=== PATIENT | male | born 1960 | race African-American/Black ===

== ENCOUNTER 2020-11-11 20:35 | Inpatient (IN) ==
[2020-11-11] MEDS ORDERED: Ondansetron 4 MG/2 ML VIAL IVP PRN (22:33)
[2020-11-11] MEDS ORDERED: Naloxone 0.4 MG/ML INJ IVP PRN (22:33)
[2020-11-11] MEDS ORDERED: Acetaminophen 325 MG TABLET PO PRN (22:33)
[2020-11-11] MEDS ORDERED: Perflutren Lipid Microsphere 1.3 ML in 0.9 % Sodium Chloride 8.7 ML IVP PRN (22:33)
[2020-11-11] MEDS ORDERED: Ipratropium/Albuterol Neb 3 ML IH PRN (22:36)
[2020-11-11] MEDS: Albumin 25% 25gram/100mL 25 GM/100 ML IV.SOLN IVC SCH (23:39)
[2020-11-11 23:54] LABS: BUN/Creatinine Ratio 19 (6-26); Blood Urea Nitrogen 21 mg/dL (6-20); Calcium 8.7 mg/dL (8.6-10.3); Carbon Dioxide 15 mEq/L (23-29); Chloride 96 mEq/L (98-107); Glucose 117 mg/dL (70-105); Osmolality,Calculated 264 (280-300); Potassium 4.9 mEq/L (3.5-5.1); Sodium 125 mEq/L (136-145); eGFR For African Americans > 60 (> 60); eGFR For Non-African Americans > 60 (> 60)
[2020-11-11] MEDS: DilTIAZem 50 MG/50 ML IV.SOLN IVC SCH (23:56)
[2020-11-11] MEDS ORDERED: *HR* LORazepam 2 MG/ML VIAL IVP PRN ×3 (23:59)
[2020-11-12] MEDS ORDERED: *HR* Heparin 5,000 UNIT/ML VIAL IVP PRN ×2 (00:07)
[2020-11-12] MEDS ORDERED: *HR* Heparin 5,000 UNIT/ML VIAL IVP ONE (00:07)
[2020-11-12] MEDS ORDERED: Isovue-370 500 ML BOTTLE IVP ONE (00:10)
[2020-11-12 00:58] LABS: Hematocrit 42.4 % (37.5-50.1); Hemoglobin 14.1 g/dL (12.9-16.9); Mean Corpuscular HGB Conc 33.3 g/dL (31.6-35.5); Mean Corpuscular Hemoglobin 33.7 pg (28.0-33.3); Mean Corpuscular Volume 101.4 fL (83.0-100.0); Mean Platelet Volume 11.6 fL (9.4-12.4); Platelet Count 227 K/mcL (140-400); Red Blood Count 4.18 M/mcL (4.19-5.50); Red Cell Distribution Width 13.4 % (11.5-14.5); White Blood Count 4.4 K/mcL (4.3-11.1)
[2020-11-12] MEDS ORDERED: Thiamine (B-1) 100 MG, Folic Acid 1 MG, MVI, adult with vitamin K 10 ML in 0.9 % Sodi... IVPB SCH (01:00)
[2020-11-12] MEDS: Albumin 25% 25gram/100mL 25 GM/100 ML IV.SOLN IVC SCH (01:27)
[2020-11-12 01:28] LABS: BUN/Creatinine Ratio 20 (6-26); Blood Urea Nitrogen 21 mg/dL (6-20); Calcium 8.4 mg/dL (8.6-10.3); Carbon Dioxide 14 mEq/L (23-29); Chloride 97 mEq/L (98-107); Glucose 112 mg/dL (70-105); Osmolality,Calculated 266 (280-300); Potassium 4.7 mEq/L (3.5-5.1); Sodium 126 mEq/L (136-145); eGFR For African Americans > 60 (> 60); eGFR For Non-African Americans > 60 (> 60)
[2020-11-12] MEDS: Heparin 25,000UNIT/250ML 1/2NS 25,000 UNIT/250 ML IV.SOLN IVC SCH ×2 (02:20→17:24)
[2020-11-12 03:11] LABS: Heparin anti-factor XA UFH 0.05 IU/mL (0.30-0.70)
[2020-11-12 03:12] LABS: INR 1.1; Prothrombin Time 13.2 Seconds (9.4-12.1)
[2020-11-12 07:21] LABS: Troponin I 0.13 ng/mL (< 0.04)
[2020-11-12] MEDS: DilTIAZem 50 MG/50 ML IV.SOLN IVC SCH ×4 (09:18→22:08)
[2020-11-12] MEDS: Aspirin 81 MG TAB.CHEW PO SCH (09:18)
[2020-11-12] MEDS: Furosemide 40 MG/4 ML VIAL IVP SCH (09:18)
[2020-11-12] MEDS ORDERED: Metoprolol XL (24 HR) Succ 25 MG TAB.ER.24H PO SCH (09:30)
[2020-11-12 09:59] LABS: Heparin anti-factor XA UFH 0.72 IU/mL (0.30-0.70)
[2020-11-12 10:11] LABS: Magnesium 1.9 mg/dL (1.6-2.6)
[2020-11-12 10:25] LABS: Thyroid Stimulating Hormone 0.922 mcIU/mL (0.340-5.600)
[2020-11-12 10:32] LABS: Activated Partial Thrombo Time 102.8 Seconds (26.0-36.0)
[2020-11-12] MEDS: Metoprolol XL (24 HR) Succ 25 MG TAB.ER.24H PO SCH (21:56)
[2020-11-12] MEDS ORDERED: *HR* Metoprolol 5 MG/5 ML VIAL IVP ONE (23:21)
[2020-11-13] MEDS ORDERED: *HR* OxyCODONE Immed Rel 5 MG TABLET PO PRN (00:49)
[2020-11-13] MEDS ORDERED: *HR* HYDROcodone/Acet 5/325 mg TABLET PO PRN (00:49)
[2020-11-13] MEDS ORDERED: Isovue-370 500 ML BOTTLE IVP ONE (00:52)
[2020-11-13 03:04] LABS: Basophils % 0.1 %; Eosinophils % 0.1 %; Hematocrit 41.1 % (37.5-50.1); Hemoglobin 13.6 g/dL (12.9-16.9); Immature Granulocytes % 0.9 % (0-4); Lymphocytes # 0.8 K/mcL (0.6-4.6); Mean Corpuscular HGB Conc 33.1 g/dL (31.6-35.5); Mean Corpuscular Hemoglobin 33.5 pg (28.0-33.3); Mean Corpuscular Volume 101.2 fL (83.0-100.0); Mean Platelet Volume 12.3 fL (9.4-12.4); Monocytes # 1.3 K/mcL (0.0-1.3); Monocytes % 14.1 %; Platelet Count 248 K/mcL (140-400); Red Blood Count 4.06 M/mcL (4.19-5.50); Red Cell Distribution Width 14.1 % (11.5-14.5); Segmented Neutrophils % 75.8 %; White Blood Count 8.9 K/mcL (4.3-11.1)
[2020-11-13 03:11] LABS: BUN/Creatinine Ratio 27 (6-26); Blood Urea Nitrogen 33 mg/dL (6-20); Carbon Dioxide 21 mEq/L (23-29); Chloride 100 mEq/L (98-107); Glucose 125 mg/dL (70-105); Neutrophils # 6.8 K/mcL (1.6-8.9); Osmolality,Calculated 281 (280-300); Potassium 4.5 mEq/L (3.5-5.1); Sodium 131 mEq/L (136-145); eGFR For African Americans > 60 (> 60); eGFR For Non-African Americans > 60 (> 60)
[2020-11-13] MEDS: DilTIAZem 50 MG/50 ML IV.SOLN IVC SCH ×2 (03:19→09:35)
[2020-11-13] MEDS: Furosemide 40 MG/4 ML VIAL IVP SCH (07:34)
[2020-11-13] MEDS: Aspirin 81 MG TAB.CHEW PO SCH (07:34)
[2020-11-13] MEDS: Metoprolol XL (24 HR) Succ 25 MG TAB.ER.24H PO SCH (07:34)
[2020-11-13] MEDS: Heparin 25,000UNIT/250ML 1/2NS 25,000 UNIT/250 ML IV.SOLN IVC SCH (13:23)
[2020-11-13] MEDS ORDERED: Metoprolol XL (24 HR) Succ 50 MG TAB.ER.24H PO ONE (14:09)
[2020-11-13] MEDS ORDERED: Metoprolol XL (24 HR) Succ 50 MG TAB.ER.24H PO SCH (21:00)
[2020-11-14] MEDS: Heparin 25,000UNIT/250ML 1/2NS 25,000 UNIT/250 ML IV.SOLN IVC SCH ×2 (07:04→22:28)
[2020-11-14] MEDS: Metoprolol XL (24 HR) Succ 50 MG TAB.ER.24H PO SCH ×2 (08:40→20:56)
[2020-11-14] MEDS: Furosemide 40 MG/4 ML VIAL IVP SCH (08:41)
[2020-11-14] MEDS: Aspirin 81 MG TAB.CHEW PO SCH (08:41)
[2020-11-14] MEDS ORDERED: *HR* Digoxin 0.5 MG/2 ML AMPUL IVP STA (09:39)
[2020-11-14] MEDS ORDERED: *HR* Digoxin 0.5 MG/2 ML AMPUL IVP ONE ×2 (16:00→22:00)
[2020-11-15 00:32] LABS: Basophils % 0.7 %; Eosinophils # 0.1 K/mcL (0.0-0.6); Eosinophils % 1.4 %; Hematocrit 42.5 % (37.5-50.1); Hemoglobin 14.4 g/dL (12.9-16.9); Immature Granulocytes % 0.5 % (0-4); Lymphocytes # 1.5 K/mcL (0.6-4.6); Lymphocytes % 25.9 %; Mean Corpuscular HGB Conc 33.9 g/dL (31.6-35.5); Mean Corpuscular Hemoglobin 35.2 pg (28.0-33.3); Mean Corpuscular Volume 103.9 fL (83.0-100.0); Mean Platelet Volume 11.1 fL (9.4-12.4); Monocytes # 0.8 K/mcL (0.0-1.3); Monocytes % 14.3 %; Neutrophils # 3.3 K/mcL (1.6-8.9); Platelet Count 236 K/mcL (140-400); Red Blood Count 4.09 M/mcL (4.19-5.50); Red Cell Distribution Width 14.3 % (11.5-14.5); Segmented Neutrophils % 57.2 %; White Blood Count 5.8 K/mcL (4.3-11.1)
[2020-11-15 00:51] LABS: BUN/Creatinine Ratio 24 (6-26); Blood Urea Nitrogen 27 mg/dL (6-20); Carbon Dioxide 24 mEq/L (23-29); Chloride 105 mEq/L (98-107); Glucose 96 mg/dL (70-105); Osmolality,Calculated 291 (280-300); Potassium 4.2 mEq/L (3.5-5.1); Sodium 138 mEq/L (136-145); eGFR For African Americans > 60 (> 60); eGFR For Non-African Americans > 60 (> 60)
[2020-11-15] MEDS: Furosemide 40 MG/4 ML VIAL IVP SCH (09:12)
[2020-11-15] MEDS: *HR* Digoxin 0.125 MG TABLET PO SCH (09:14)
[2020-11-15] MEDS: Aspirin 81 MG TAB.CHEW PO SCH (09:14)
[2020-11-15] MEDS: Metoprolol XL (24 HR) Succ 50 MG TAB.ER.24H PO SCH ×2 (09:14→21:30)
[2020-11-15] MEDS ORDERED: 0.9 % Sodium Chloride 2,000 ML ONE (12:37)
[2020-11-15] MEDS ORDERED: ISOVUE-370 200 ML INFUS..BTL ONE (12:38)
[2020-11-15] MEDS ORDERED: Heparin 1,000 UNITS/500 mL 500 ML ONE (12:38)
[2020-11-15] MEDS ORDERED: Nitroglycerin 1,000 MCG/5 ML VIAL IV ONE (12:38)
[2020-11-15] MEDS ORDERED: *HR* Heparin 10,000 UNIT/10 ML VIAL ONE (12:38)
[2020-11-15] MEDS ORDERED: *HR* Midazolam HCl 2 MG/2 ML VIAL ONE (12:42)
[2020-11-15] MEDS ORDERED: *HR* FentaNYL (PF) 100 MCG/2 ML VIAL ONE (12:42)
[2020-11-15] MEDS: *HR* Rivaroxaban 10 MG TABLET PO SCH (17:07)
[2020-11-15] MEDS: Heparin 25,000UNIT/250ML 1/2NS 25,000 UNIT/250 ML IV.SOLN IVC SCH (17:36)
[2020-11-16 01:06] LABS: Basophils % 0.7 %; Eosinophils # 0.1 K/mcL (0.0-0.6); Eosinophils % 1.6 %; Hematocrit 42.6 % (37.5-50.1); Hemoglobin 14.4 g/dL (12.9-16.9); Immature Granulocytes % 0.7 % (0-4); Lymphocytes # 1.2 K/mcL (0.6-4.6); Lymphocytes % 25.9 %; Mean Corpuscular HGB Conc 33.8 g/dL (31.6-35.5); Mean Corpuscular Hemoglobin 34.9 pg (28.0-33.3); Mean Corpuscular Volume 103.1 fL (83.0-100.0); Mean Platelet Volume 10.7 fL (9.4-12.4); Monocytes # 0.6 K/mcL (0.0-1.3); Monocytes % 12.6 %; Neutrophils # 2.6 K/mcL (1.6-8.9); Platelet Count 250 K/mcL (140-400); Red Blood Count 4.13 M/mcL (4.19-5.50); Red Cell Distribution Width 14.3 % (11.5-14.5); Segmented Neutrophils % 58.5 %; White Blood Count 4.4 K/mcL (4.3-11.1)
[2020-11-16 01:32] LABS: BUN/Creatinine Ratio 23 (6-26); Blood Urea Nitrogen 26 mg/dL (6-20); Calcium 9.1 mg/dL (8.6-10.3); Carbon Dioxide 26 mEq/L (23-29); Chloride 105 mEq/L (98-107); Glucose 122 mg/dL (70-105); Osmolality,Calculated 294 (280-300); Sodium 139 mEq/L (136-145); eGFR For African Americans > 60 (> 60); eGFR For Non-African Americans > 60 (> 60)
[2020-11-16] MEDS: Furosemide 40 MG/4 ML VIAL IVP SCH (09:45)
[2020-11-16] MEDS ORDERED: lisinopriL 5 MG TABLET PO SCH (09:45)
[2020-11-16] MEDS: *HR* Digoxin 0.125 MG TABLET PO SCH (09:45)
[2020-11-16] MEDS: Aspirin 81 MG TAB.CHEW PO SCH (09:45)
[2020-11-16] MEDS ORDERED: Spironolactone 12.5 MG TABLET PO SCH (09:45)
[2020-11-16] MEDS: Metoprolol XL (24 HR) Succ 50 MG TAB.ER.24H PO SCH (09:45)
[2020-11-16 16:27] VITALS: BP 148/103; PULSE 79; TEMP 97.9; O2SAT 99
[2020-11-16] MEDS: *HR* Rivaroxaban 10 MG TABLET PO SCH (17:17)
[2020-11-17] MEDS ORDERED: Furosemide 40 MG TABLET PO SCH (09:00)
== END 2020-11-16 18:54 | disposition home or self-care (01) | DRG 280 ==
LOC: 2NENU → EDBD 22:34
PROVIDERS: ADMIT Internal Medicine; ATTEND Internal Medicine